=== PATIENT | female | born 1970 | race Hispanic/Latino ===

== ENCOUNTER 2020-07-21 14:35 | Outpatient (CLI) | payer BC, SELFPAY ==
--- NOTE | ~2020-07-21 | CT_ITS ---
EXAMINATION: CT abdomen pelvis w con DATE: 07/21/2020 15:25 INDICATION: Groin hernia. TECHNIQUE: Computed tomography (CT) of the abdomen and pelvis was performed with 100 mL Omnipaque 350 intravenous contrast. Automated exposure control and iterative reconstruction technique were employe d. The dose-length product was 554.94 mGy-cm. COMPARISON: CT abdomen and pelvis 04/05/2019 FINDINGS: The visualized portions of the lung bases demonstrate mild atelectasis. No pleural effusion . The heart size is normal. No pericardial effusion. The liver, gallbladder, spleen, pancreas, and ri ght adrenal gland are normal. There is a 19 mm mass in left adrenal gland measuring low-attenuation o n the prior noncontrast CT, consistent with an adenoma. Right kidney is normal. There is a 6 mm cyst in left kidney. There is a right inguinal hernia containing fat. There are no dilated loops of bowel. The appendix is not visualized. There are no pathologically enlarged lymph nodes. There is no free i ntraperitoneal fluid. The left periuterine and ovarian veins are enlarged, consistent with pelvic db ous insufficiency. There is mild lumbar spondylosis. IMPRESSION: 1. Right inguinal hernia containing fat. Reviewed, dictated and finalized at location A. ATOR
== END 2020-07-21 14:36 | disposition home or self-care (01) ==
PROVIDERS: PCP Family Medicine; Visit Provider Obstetrics & Gynecology
DX: K40.90 Unilateral inguinal hernia, without obstruction or gangrene, not specified as recurrent (principal); N28.1 Cyst of kidney, acquired
CPT/HCPCS: 74177; Q9967

== ENCOUNTER 2020-08-08 16:08 | Outpatient (CLI) | payer BC, SELFPAY ==
--- NOTE | ~2020-08-08 | MM_ITS ---
EXAMINATION: MM screening alicia BI w bronwyn HISTORY: Screening mammogram TECHNIQUE: Craniocaudal and mediolateral oblique 3-D tomosynthesis images were obtained and synthetic 2-D images were generated. CAD analysis was submitted and interpreted. COMPARISON: 04/28/2019, 07/31/2016, 08/03/2014 bilateral digital screening mammogram examinations BREAST PARENCHYMAL COMPOSITION: The breasts are heterogeneously dense, which may obscure small masses . FINDINGS: Occasional bilateral benign calcifications. There is no evidence of suspicious mass, calcif ication, or architectural distortion to suggest malignancy in either breast. There has been no suspic ious interval change. IMPRESSION: 1. No mammographic evidence of malignancy. 2. Recommend routine screening mammography in one year. BI-RADS Category 2: Benign finding(s). Reviewed, dictated and finalized at location A. [facility]ATE[facility]IST
== END 2020-08-08 16:09 | disposition home or self-care (01) ==
LOC: ANHIMG 16:10
PROVIDERS: PCP Family Medicine; Visit Provider Obstetrics & Gynecology
DX: Z12.31 Encounter for screening mammogram for malignant neoplasm of breast (principal)
CPT/HCPCS: 77063; 77067

== ENCOUNTER 2020-08-26 02:25 | Outpatient (CLI) | payer OTHER, SELFPAY ==
[2020-08-26 19:32] LABS: SARS-CoV-2 RNA PCR Negative
== END 2020-08-26 02:26 | disposition home or self-care (01) ==
LOC: ANHCOVIDDT 02:26
PROVIDERS: PCP Family Medicine; Visit Provider Surgery
DX: Z01.812 Encounter for preprocedural laboratory examination (principal); Z20.822 Contact with and (suspected) exposure to COVID-19
CPT/HCPCS: C9803; U0003

== ENCOUNTER 2020-08-26 09:16 | Outpatient (CLI) | payer OTHER, SELFPAY | END 2020-08-26 09:17 | disposition home or self-care (01) | PROVIDERS: PCP Family Medicine; Visit Provider Surgery | DX: Z01.812 Encounter for preprocedural laboratory examination (principal); K43.9 Ventral hernia without obstruction or gangrene | CPT/HCPCS: 36415; 86850; 86900; 86901 ==

== ENCOUNTER 2020-09-09 01:32 | Outpatient (CLI) | payer OTHER, SELFPAY ==
[2020-09-10 00:20] LABS: SARS-CoV-2 RNA PCR Negative
== END 2020-09-09 01:33 | disposition home or self-care (01) ==
LOC: ANHCOVIDDT 01:32
PROVIDERS: PCP Family Medicine; Visit Provider Surgery
DX: Z01.812 Encounter for preprocedural laboratory examination (principal); Z20.822 Contact with and (suspected) exposure to COVID-19
CPT/HCPCS: C9803; U0003; U0005

== ENCOUNTER 2020-09-13 00:39 | Day surgery (SDC) | payer OTHER, SELFPAY ==
[2020-08-23 17:17] VITALS: BMI 28.3
[2020-09-13] VITALS (11 sets, daily range): BP systolic 101–188; BP diastolic 38–92; PULSE 65–108; RESP 14–24; TEMP 36.8–37.7; O2SAT 94–100
--- NOTE | 2020-09-13 09:44 | PM.IMHP ---
H&P: HPI History of Present Illness Date/Time: 09/13/20 09:44 Chief Complaint: Right inguinal hernia Narrative: Yudelka Benson is a 50 year old female who presents for right inguinal hernia repair. She has been having right groin discomfort for about 1 year. She had a CT which showed evidence of a right inguinal hernia. Review of Systems Review of Systems: All systems reviewed & are unremarkable except as noted in HPI and below Constitutional: Constitutional: Denies chills, Denies fever(s), Denies headache(s) and Denies weight loss Eyes: Eyes: Denies change in vision ENT: Denies dizziness, Denies headache(s), Denies neck mass and Denies throat swelling Cardiovascular: Cardiovascular: Denies chest pain, Denies lightheadedness and Denies dyspnea Respiratory: Respiratory: Denies cough, Denies dyspnea and Denies wheezing Gastrointestinal: Gastrointestinal: Denies abdominal pain, Denies change in bowel habits, Denies nausea and Denies vomiting Genitourinary: Genitourinary: Denies hematuria and Denies dysuria Musculoskeletal: Musculoskeletal: Reports as per HPI Integumentary/Breasts: Skin/Breast: Reports as per HPI Neurologic: Denies dizziness and Denies headache(s) Allergic/Immunologic: Allergic/Immunologic: Denies throat swelling and Denies wheezing PMFSH Past Medical History Medical History Liver disease, chronic, with cirrhosis avoid tylenol, no alcohol Primary biliary cholangitis (~12/2015) Surgical History Surgical History No pertinent past surgical history Family History Family History Mother Hypertension Diabetes mellitus Heart disease Father , diet at age 65 Lymphoma Social History Social History Smoking status: Never smoker Second hand tobacco smoke exposure: Yes Additional smoking assessment comments: SMOKE FROM [employer] SINCE 2006 Alcohol intake: never Substance use: never Substance use type: does not use Living arrangements: with family Gender identity (if verbalized by the patient): Female Spiritual care concerns: No Meds Home Medications and Allergies Home Medications Medication Instructions Recorded Confirmed Type ursodiol 500 mg tablet 500 mg PO BID 06/18/19 08/23/20 History Allergies Allergy/AdvReac Type Severity Reaction Status Date / Time No Known Allergies Allergy Mild Verified 08/23/20 17:38 Exam Const: General: no acute distress and alert Orientation/consciousness: patient oriented x3 HENMT: Head: normocephalic and atraumatic Ears: hearing grossly normal bilaterally General nose exam: Normal nares present Mouth: Yes Normal oral and palatal mucosa present Eyes: Periorbital: periorbital findings normal Sclera: sclerae normal EOM: EOMs intact bilaterally Neck: Neck: normal visual inspection, no lymphadenopathy and trachea midline Chest: Chest palpation & inspection: normal inspection of the chest Resp: Effort & Inspection: normal respiratory effort Auscultation: clear to auscultation bilaterally Cardio: Jugular venous distension: no JVD Rate: regular rate Rhythm: regular rhythm Heart sounds: S1 normal heart sound present and S2 normal heart sound present Peripheral pulses: Peripheral pulses 2+ throughout GI: Inspection: normal to inspection GI Palp: Yes Soft to palpation, No Tenderness to palpation present (GI), No Guarding due to palpation present (GI) and No Rebound tenderness present Percussion: Yes normal to percussion Auscultation: normal bowel sounds : General: Yes no CVA tenderness Other: right inguinal hernia Back/Spine/Pelvis: Back: no CVA tenderness Neuro: General: patient oriented x3, no focal motor deficits and CN's II-XI intact bilaterally Cognition (Neuro): normal co
[2020-09-13] MEDS: ACETAMINOPHEN 500 MG TABLET 1000 MG PO (10:59)
--- NOTE | 2020-09-13 10:59 | P.PNAN_ITS ---
Anes - Initial Pre Proc Eval Procedure: Operation Date: 09/13/20 12:30 Proposed Procedures p Laparoscopic Right Inguinal Hernia Repair With Mesh, Davinci Assisted - Faustino Aguayo DO Date/Time: 09/13/20 10:59 Surgeon: Faustino Aguayo DO Pre Op Diagnosis: Right Inguinal Hernia Patient Data Age: 50 Gender: F Height: 5 ft 4 in Weight: 73.4 kg Last Vital Signs Temp 98.2 F 09/13/20 10:44 Pulse 65 09/13/20 10:44 Resp 14 09/13/20 10:44 BP 126/77 09/13/20 10:44 Pulse Ox 100 09/13/20 10:44 Allergies Allergy/AdvReac Type Severity Reaction Status Date / Time No Known Allergies Allergy Mild Verified 08/23/20 17:38 Home Medications Medication Instructions Recorded Confirmed Type ursodiol 500 mg tablet 500 mg PO BID 06/18/19 08/23/20 History Patient hx anesthesia problems: none Family hx anesthesia problems: none [facility] Past Medical History Medical History Liver disease, chronic, with cirrhosis avoid tylenol, no alcohol Primary biliary cholangitis (~12/2015) Surgical History Surgical History No pertinent past surgical history Family History Family History Mother Hypertension Diabetes mellitus Heart disease Father , diet at age 65 Lymphoma Social History Social History Smoking status: Never smoker Second hand tobacco smoke exposure: Yes Additional smoking assessment comments: SMOKE FROM [employer] SINCE 2006 Alcohol intake: never Substance use: never Substance use type: does not use Living arrangements: with family Gender identity (if verbalized by the patient): Female Spiritual care concerns: No Anes - Eval Final PreProcedure Day of Procedure 09/13/20 10:59 Patient weight: normal Heart: regular rate and rhythm Lungs: clear to auscultation Airway: Mallampati scale class II Neurological: alert and oriented ASA classification: II Emergent: no Anesthetic plan: proceed Anesthesia type and monitoring: general ETT and standard monitoring Informed Consent: The patient's anesthetic plan and its attendant risks and benefits were discussed with the patient/family/POA. Questions were solicited and answers provided to the satisfaction of the patient/family/POA.
[2020-09-13] MEDS: LACTATED RINGERS 1,000 ML 30 ML IV CONT ×2 (11:17→14:14)
[2020-09-13] MEDS: KETOROLAC 15 MG/ML VIAL (*BKC) IV PUSH (11:18)
--- NOTE | 2020-09-13 11:59 | WPDHPUPDATE1 ---
History and Physical Update Update Date/Time: 09/13/20 11:59 History and Physical has been reviewed, including an updated exam of the patient. There are NO changes in the patient's condition. Risks, benefits, and alternatives have been discussed and questions answered. Patient agrees to proceed with procedure.
--- NOTE | 2020-09-13 12:12 | SUR.PREOP ---
1212 pt taken to bathroom to void
[2020-09-13] MEDS: ceFAZolin 2 GM/D5W 50 ML 2 GM/50 ML BAG IVPB (12:25)
[2020-09-13] MEDS: BUPIVACAINE HCL 0.5% PF 30 ML VIAL INFILTRATE (13:22)
--- NOTE | 2020-09-13 13:54 | PM.PROC ---
Procedure Note - Detailed Date of procedure: 09/13/20 Pre-op diagnosis: Right Inguinal Hernia Post-op diagnosis: same (Indirect RIH) Procedure performed: Laparoscopic right inguinal hernia repair with Progrip mesh, da Zohreh assisted Description of procedure: Procedure as well as risks, benefits, and alternatives were discussed with the patient. Written consent was obtained and placed in chart prior to procedure. Patient was brought back to surgical suite. She was placed supine on operating table. Time-out was done to confirm patient and procedure. She was then intubated by Anesthesia Department. Her abdomen was prepped and draped in sterile fashion using chlorhexidine prep. 0.5% bupivacaine with epinephrine was infiltrated at each location for incision. An 8 mm incision was made in the left lateral abdomen, and a 5 mm Optiview trocar was advanced through the abdominal layers under direct visualization. Once inside the abdominal cavity, carbon dioxide insufflation was used to create a pneumoperitoneum. A camera was inserted and the abdominal cavity was inspected. The patient was placed in slight Trendelenburg position. An 8 millimeter incision was made on the right lateral abdomen and an 8 millimeter trocar was inserted under direct visualization. Another 8 millimeter incision was made just superior to the umbilicus and an 8 millimeter trocar was inserted under direct visualization. The 5 mm port was then removed and this was replaced with another 8 mm robotic port. The robotic arms were brought up to the patient's bedside and secured to the ports. The camera and instruments were inserted. I then moved over to the robotic console and took control of the camera and instruments. After careful inspection of the abdominal cavity, I began scoring the peritoneum along the right lower quadrant using scissors with electrocautery. The preperitoneal plane was entered and this was carefully dissected caudally along the inferior epigastric vessels. Careful dissection with scissors with electrocautery and blunt dissection was used to continue this dissection. I dissected far enough laterally to allow for mesh placement, and also dissected medially to identify the pubic arch and Donnie's ligament. The hernia sac was identified and carefully dissected posteriorly. The round ligament was also identified and the peritoneum was carefully dissected far enough posteriorly to allow for mesh placement. The round ligament was also transected using scissors with electrocautery so that the mesh could adequately be placed flat against the ileal pubic tract. Once an adequate pocket was created, I then placed the mesh within the preperitoneal pocket and carefully unfolded it. The mesh was centered on the hernia defect with adequate overlap circumferentially. The inferior edge of the mesh was inspected to ensure that it was far enough away from the peritoneal edge. The mesh appeared in proper position overlying the entire myopectineal orifice. The peritoneum was then closed over the mesh using a 3-0 V-lock running absorbable suture. The robotic instruments were removed. The robotic arms were disengaged from the ports and moved away from the bedside. The patient was flattened out in bed, the ports were removed under direct visualization, and the pneumoperitoneum was released. The skin of the incisions was approximated using 4-0 Monocryl subcuticular suture, and Exofin glue was applied on top. The patient was awakened from anesthesia, extubated, and transferred to recovery. Implants: Progrip Mesh 10cm x 15cm Anesthesia: GETA and local (0.5% bupivicaine with epi) Surgeon: Faustino Aguayo DO Estimated blood loss (mL): 5 Drains: No Packing: No Pathology: none sent Complications: No immediate complications Condition: stable Disposition: same day Findings: This is a 50-year-old woman who presented with a right groin bulge and discomfort for the past year. She had a CT of h
--- NOTE | 2020-09-13 14:48 | SUR.PHASEI ---
1445 - Dr. Aldridge at bedside. pt responds to verbal stimuli. pt indicates that she is doing well
[2020-09-13] MEDS: ONDANSETRON INJ 4 MG/2 ML VIAL IV PUSH (15:39)
== END 2020-09-13 16:29 | disposition home or self-care (01) ==
PROVIDERS: PCP Family Medicine; Visit Provider Surgery
PROC: 8E0Y4CZ Robotic Assisted Procedure of Lower Extremity, Percutaneous Endoscopic Approach (ICD-10-PCS; CPT 49650; principal; 2020-09-13 12:30)
DX: K40.90 Unilateral inguinal hernia, without obstruction or gangrene, not specified as recurrent (principal); K74.60 Unspecified cirrhosis of liver
CPT/HCPCS: 49650; S2900; 36415; 86850; 86900; 86901; 94002; A9270; C1781; J0330; J0690; J1100; J1885; J2250; J2405; J2704; J2710; J3010; J7120

== ENCOUNTER 2022-03-18 10:32 | Outpatient (CLI) | payer OTHER, SELFPAY ==
--- NOTE | ~2022-03-18 | MM_ITS ---
EXAMINATION: MM screening alicia BI w bronwyn HISTORY: Screening TECHNIQUE: Craniocaudal and mediolateral oblique 3-D tomosynthesis images were obtained and synthetic 2-D images were generated. CAD analysis was submitted and interpreted. COMPARISON: Comparison to multiple prior studies sequentially, with oldest reviewed study dated 05/10. BREAST PARENCHYMAL COMPOSITION: The breasts are heterogeneously dense, which may obscure small masses . FINDINGS: There is no evidence of suspicious mass, calcification, or architectural distortion to sugg est malignancy in either breast. There has been no suspicious interval change. IMPRESSION: 1. No mammographic evidence of malignancy. 2. Recommend routine screening mammography in one year. BI-RADS Category 1: Negative Reviewed, dictated and finalized at location A.
== END 2022-03-18 10:33 | disposition home or self-care (01) ==
LOC: ANHIMG 10:34
PROVIDERS: Visit Provider Obstetrics & Gynecology
DX: Z12.31 Encounter for screening mammogram for malignant neoplasm of breast (principal)
CPT/HCPCS: 77063; 77067